=== PATIENT | male | born 1985 | race Caucasian/White ===

== ENCOUNTER 2016-06-26 15:51 | Emergency (ER) | payer MEDICAID, OTHER ==
[2016-06-26 15:59] VITALS: RESP 16
[2016-06-26] MEDS ORDERED: NS 1,000 ML IV ONE (17:09)
--- NOTE | 2016-06-26 17:27 | EDPHY ---
H & P Stated Complaint: anterior neck pain, dysphagia--cough--no new trauma Source: Patient Exam Limitations: No limitations - Personal History Current Tetanus/Diphtheria Vaccine: Unsure Current Tetanus Diphtheria and Acellular Pertussis (TDAP): Unsure - Medical/Surgical History Hx Asthma: No Hx Chronic Respiratory Disease: No Hx Diabetes: No Hx Cardiac Disease: No Hx Renal Disease: No Hx Cirrhosis: No Hx Alcoholism: No Hx HIV/AIDS: No Hx Splenectomy or Spleen Trauma: No Other PMH: prior c4 injury 2012 - Social History Smoking Status: Light smoker HPI/ROS: CHIEF COMPLAINT: Anterior neck pain HISTORY OF PRESENT ILLNESS: patient notes the sudden onset of bilateral anterior neck pain yesterday. It is difficult for him to qualify or quantify the pain. He noted some spasms with. It is from the midline of the neck back to about 90. Moderate to severe pain severe enough that he felt he needed to come to the emergency department. He has some difficulty when he swallows but no internal /esophageal pain. No soreness of the throat. No difficulty breathing. He has a chronic neck pain that he has dealt with for years, is uncertain if this is related. He has no motor or sensory complaints of the upper extremities. No weakness of the lower extremities or saddle anesthesia. He has no fever or chills. He does admits using a bong yesterday, but his complaints started prior to this. He also had a sudden onset of chest pain yesterday that almost nearly immediately resolved. No shortness of breath. No other associated complaints or modifying factors. REVIEW OF SYSTEMS: Ten systems reviewed and are negative unless otherwise noted in the HPI EXAMINATION General Appearance: Alert, no distress Head: normocephalic, atraumatic Eyes: Pupils equal and round, no conjunctival pallor or injection . EOMs intact. ENT, Mouth: Mucous membranes moist . Uvula midline. No erythema, edema or lesions. Neck: Normal appearance. Supple. No midline tenderness of the posterior neck. There is subcutaneous emphysema on the bilateral anterior neck margins from the ramus of the mandible down to the clavicles. Respiratory: Lungs are clear to auscultation . No wheezing, rhonchi, crackle or diminishment. No distress. Cardiovascular: Regular rate and rhythm . No murmur. Pulses intact distally. Gastrointestinal: Abdomen is soft and nontender Back: non-tender, no bony abnormalities Neurological: A&O, nonfocal, normal gait . Strength is symmetric in all 4 limbs. Sensory is intact in all 4 limbs. Skin: Warm and dry, no rash Extremities: Nontender, no pedal edema Psychiatric: Mood and affect normal DIFFERENTIAL DIAGNOSES: Including but not limited to Subcutaneous emphysema, mediastinal injury, pneumomediastinum, pneumothorax, esophageal injury, tracheal injury MDM: 5:15 p.m. anterior neck pain with palpable subcutaneous emphysema. His vital signs are within normal limits. Lungs are clear in all prado. Was did immediately ordered a CT scan of the neck soft tissue and Chest to further delineate. Creatinine has been verified as normal. CT has been notified. He is resting comfortably in no acute distress. 6:30 p.m. radiology notified me of the CT scan findings that are significant, with profound pneumomediastinum that does track into the epidural space. I immediately consult to neurosurgery. I discussed the case with Dr. Carney. He reviewed the CT scan and feels that there is no neurosurgical emergency or need for treatment from this. I have discussed this with the patient he is resting comfortably in no acute distress. He informed me that he does not feel that the Bong is the cause of this as he had symptoms before that. He still has pain in the neck but has no distress, no difficulty breathing. He does still have odynophagia but no dysphagia. I discussed the case with Dr. Sebastian and he will evaluate the patient to assist with disposition. He will also assume care of the patient at this time. Please see his note for final disposition. SUPERVISION: Patient was evaluated in conjunction with the supervising physician. Please see their note for details. (Cesar Ochoa) Constitutional: Initial Vital Signs Temperature (C) 97.7 F 06/26/16 15:55 Heart Rate 87 06/26/16 15:55 Respiratory Rate 16 06/26/16 15:55 Blood Pressure 95/69 L 06/26/16 15:55 O2 Sat (%) 96 06/26/16 15:55 O2 Delivery Mode Room Air Allergies/Adverse Reactions: Sulfa (Sulfonamide Antibiotics) Allergy (Verified 06/26/16 15:54) Home Medications: Medication Instructions Recorded Concerta 06/26/16 Hydrocodone/APAP 5/325 [Dedham 1 - 2 each PO Q6 PRN #20 tab 06/26/16 5/325] Medical Decision Making Other Provider: I evaluated and participated in the management of the patient. I also evaluated the patient independently. My co-signature indicates that I have reviewed this chart and I agree with the findings and plan of care as documented. My personal H&P findings include: The patient presents to the ED with complaints of neck pain in subcutaneous emphysema. His symptoms developed yesterday. There is no obvious precipitant the development of the symptoms aside from the possibility of some excessive stretching in his neck. The patient does report that he is a chronic daily marijuana user but denies excessive coughing or Valsalva maneuver. The patient does report some mild a done aphasia but denies dysphagia. The patient has no prior history of connective tissue disorder. He has no complaints of fever. The patient denies additional complaints. PHYSICAL General Appearance: Alert, no distress Eyes: Pupils equal and round no pallor or injection ENT, Mouth: Mucous membranes moist Respiratory: Lungs clear to auscultation bilaterally, subcutaneous emphysema noted extensively throughout the patient's neck and anterior chest wall Cardiovascular: Regular rate and rhythm Gastrointestinal: Abdomen is soft and nontender, no masses, bowel sounds normal Neurological: A&O, normal motor function, normal sensory exam, normal cranial nerves Skin: Warm and dry, no rashes Musculoskeletal: Neck is supple nontender Extremities: symmetrical, full range of motion CT scan of the neck and chest reviewed which demonstrates extensive pneumomediastinum, subcutaneous emphysema but no evidence of obvious pericardial effusion or pneumothorax. I evaluated the patient personally at 7:30 p.m.. The patient is having moderate pain. Consultation was made with Dr. Didier Romero who recommends esophagram for complete evaluation. Esophagram was completed and found to be within normal limits. The patient was re-evaluated by myself at 8:30 p.m.. He will be discharged home with a prescription for pain medications. The patient understands to return to the ED for fever, markedly worsening symptoms, difficulty breathing or other concerns. (Marlon Sebastian) - Data Points Laboratory Results: Laboratory Results 06/26/16 17:27 06/26/16 17:27 Medications Given: Discontinued Medications Hydrocodone Bitart/Acetaminophen (Dedham 5/325mg Prepack#6) 1 btl TAKEHOME EDNOW ONE Stop: 06/26/16 20:46 Last Admin: 06/26/16 20:45 Dose: 1 btl Sodium Chloride (Ns) 1,000 mls @ 0 mls/hr IV ONCE ONE PRN Reason: Wide Open Stop: 06/26/16 17:10 Last Admin: 06/26/16 17:40 Dose: 1,000 mls Departure - Departure Disposition: Home, Routine, Self-Care Clinical Impression: Neck pain, Subcutaneous emphysema, non-traumatic, Pneumomediastinum Condition: Good Instructions: Neck Pain (ED), Acute Neck Pain (ED) Additional Instructions: 1. Please follow up as scheduled with your primary care provider. 2. Please avoid any marijuana smoking while you are healing from your injury today. 3. Please take ibuprofen as needed for pain. Dedham as needed for severe pain. Referrals: JORGITO YAN [Other] - As per Instructions Prescriptions: Hydrocodone/APAP 5/325 [Dedham 5/325] 1 - 2 each PO Q6 PRN #20 tab PRN Reason: for pain
[2016-06-26 17:38] LABS: % IMMATURE GRANULYOCYTES 0.3 % (0.0-1.1); ABSOLUTE IMMATURE GRANULOCYTES 0.02 10^3/uL (0.00-0.10); ADD DIFF? NO; ADD MORPH? NO; ADD SCAN? NO; ATYPICAL LYMPHOCYTE FLAG 10 (0-99); FRAGMENT RBC FLAG 0 (0-99); HEMATOCRIT 45.5 % (40.0-51.0); HEMOGLOBIN 15.9 g/dL (13.7-17.5); LEFT SHIFT FLG 0 (0-99); LIPEMIA HEMOLYSIS FLAG 90 (0-99); MEAN CELL HEMOGLOBIN 31.5 pg (27.9-34.1); MEAN CELL HEMOGLOBIN CONCENTR. 34.9 g/dL (32.4-36.7); MEAN CELL VOLUME 90.3 fL (81.5-99.8); MEAN PLATELET VOLUME 11.2 fL (8.7-11.7); PLATELET CLUMPS FLAG 0 (0-99); PLATELET COUNT 179 10^3/uL (150-400); RED BLOOD CELL COUNT 5.04 10^6/uL (4.40-6.38); RED CELL DISTRIBUTION WIDTH 13.4 % (11.5-15.2)
[2016-06-26] MEDS ORDERED: IOPAMIDOL (ISOVUE-300) 100 ML BTL IV ONE (17:45)
[2016-06-26 17:51] LABS: ANION GAP 11 mEq/L (8-16); CALCIUM 9.8 mg/dL (8.5-10.4); CARBON DIOXIDE 26 mEq/l (22-31); CHLORIDE 103 mEq/L (97-110); CREATININE 0.9 mg/dL (0.7-1.3); GLOMERULAR FILTRATION RATE > 60; GLUCOSE 87 mg/dL (70-100); POTASSIUM 4.1 mEq/L (3.5-5.2); SODIUM 140 mEq/L (134-144)
[2016-06-26 18:01] LABS: CREATINE KINASE-MB FRACTION 0.95 ng/mL (0-3.19)
[2016-06-26] MEDS ORDERED: HYDROCOD/APAP 5/325 PREPACK#6 BTL TAKEHOME ONE ×2 (20:45→20:47)
[2016-06-26 21:09] VITALS: BP 113/78; PULSE 53; TEMP 97.5; O2SAT 98
== END 2016-06-26 21:07 | disposition home or self-care (01) ==
DX: J98.2 Interstitial emphysema (principal); F17.200 Nicotine dependence, unspecified, uncomplicated
CPT/HCPCS: 80305; Q9967

== ENCOUNTER 2017-06-15 14:16 | Emergency (ER) | payer MEDICAID, OTHER ==
[2017-06-15 14:27] VITALS: TEMP 98.1; O2SAT 93
--- NOTE | 2017-06-15 15:16 | EDPHY ---
H & P Stated Complaint: ski injury 5 d ago -landed hard on legs-poss reinjury to cerv spine Time Seen by Provider: 06/15/17 15:15 - Medical/Surgical History Hx Asthma: No Hx Chronic Respiratory Disease: No Hx Diabetes: No Hx Cardiac Disease: No Hx Renal Disease: No Hx Cirrhosis: No Hx Alcoholism: No Hx HIV/AIDS: No Hx Splenectomy or Spleen Trauma: No Other PMH: prior c4 injury 2011 - Social History Smoking Status: Light smoker Constitutional: Initial Vital Signs Temperature (C) 36.7 C 06/15/17 14:22 Heart Rate 99 06/15/17 14:22 Respiratory Rate 16 06/15/17 14:22 Blood Pressure 117/59 L 06/15/17 14:22 O2 Sat (%) 93 06/15/17 14:22 O2 Delivery Mode Room Air Allergies/Adverse Reactions: Sulfa (Sulfonamide Antibiotics) Allergy (Verified 06/26/16 15:54) Home Medications: Medication Instructions Recorded Hydrocodone/APAP 5/325 [Florence 1 - 2 each PO Q4-6PRN PRN #11 tab 06/15/17 5/325] Ibuprofen [Motrin] 800 mg PO Q8 #20 tab 06/15/17 Vyvanse 06/15/17 Medical Decision Making - Diagnostics Imaging Results: Imaging Impressions Cervical Spine X-Ray 06/15/17 15:33 Impression: Reversed upper cervical curvature. Muscle spasm?. Imaging: Discussed imaging studies w/ paleologist Radiologist, I viewed and interpreted images myself ED Course/Re-evaluation: CHIEF COMPLAINT: Neck pain secondary to ski injury HISTORY OF PRESENT ILLNESS: The patient is a 32 y/o male with a history of a C4 injury complaining of neck pain after landing hard while skiing 5 days ago. When he landed he felt like his spine compressed and had shooting pains around his neck that radiated towards his head. Denies seeking medical treatment after skiing. On Thursday, 3 days ago, he started feeling better so he decided to do some pushups. After doing several pushups he had a shooting pain starting in his neck and radiated down towards his pelvis. He is currently having constant neck pain and pelvic pain while sitting. He is able to walk. No chest pain, shortness of breath, sore throat, abdominal pain, urinary or bowel complaints, numbness. REVIEW OF SYSTEMS: A 10 point review of systems was performed and is negative with the exception of the elements mentioned in the history of present illness. PHYSICAL EXAM: HR, BP, O2 Sat, RR. Temp noted General Appearance: Alert, well hydrated, appropriate, and non-toxic appearing. Head: Atraumatic without scalp tenderness or obvious injury Eyes: Pupils equal, round, reactive to light and accommodation, EOMI, no trauma , no injection. Ears: Clear bilaterally, no perforation, normal landmarks Nose: Atraumatic, no rhinorrhea, clear. Throat: Mucus membranes moist. Neck: Supple, nontender, no lymphadenopathy. Respiratory: No retractions, no distress, no wheezes, and no accessory muscle use. Lungs are clear to auscultation bilaterally. Cardiovascular: Regular rate and rhythm, no murmurs, rubs, or gallops. Good capillary refill all extremities. Gastrointestinal: Abdomen is soft, nontender, non-distended, no masses, no rebound, no guarding, no peritoneal signs. Musculoskeletal: Normal active ROM of all extremities, atraumatic. Neurological: Alert, appropriate, and interactive. Non-focal neuro Skin: No rashes, good turgor, no nodules on palpation. Past medical history: C4-5 injury (2011), degenerative disc disease Past surgical history: Denies Family history: Denies Social history: Lives in [place], single, not employed DIAGNOSTICS/PROCEDURES/CRITICAL CARE TIME: Cervical x-ray: No acute osseous injury DIFFERENTIAL DIAGNOSIS: The differential diagnosis for the patient's neck pain included but was not limited to musculoskeletal pain, epidural abscess, herniated disk, spinal fracture, and intra-abdominal causes including urinary system. MEDICAL DECISION MAKING: The patient is a 32 y/o male with a history of a C4 injury presenting with non- reproducible neck pain after landing awkwardly while skiing. He has a non-focal neuro exam and is able to walk without difficulty. At triage he declined a c- collar as it exacerbated the pain. He does not meet criteria for a neck or back MRI as he does not have neurological deficits. He is requesting a cervical x- ray. 1555: Reviewed patient's cervical x-ray; there are not acute findings. Dr. Corado, radiologist, agrees. Reassessed patient and discussed imaging findings. I have referred him to Dr. Stiles, neurosurgeon, for unimproved symptoms. I have also referred him to have outpatient cervical and lumbar MRI's via his PCP. I have prescribed him Florence for severe neck pain. Return precautions provided; patient is comfortable with this plan. Departure - Departure Disposition: Home, Routine, Self-Care Clinical Impression: Neck pain Back pain Qualifiers: Back pain location: low back pain Chronicity: acute Back pain laterality: unspecified Sciatica presence: without sciatica Qualified Code(s): M54.5 - Low back pain Condition: Good Instructions: Acute Low Back Pain (ED), Neck Pain (ED), Acute Neck Pain (ED), Chronic Neck Pain (DC) Additional Instructions: 1. Follow up with your primary care provider in the next week to schedule an outpatient MRI. 2. Follow up with Dr. Stiles, neurosurgeon, if your symptoms do not improve in one week. 3. Return to the emergency department for severe pain, fever, numbness, difficulty walking, change in location or nature of pain or other concerns. 4. Use ibuprofen and Tylenol as directed. 5. Try using a heating pad. 6. Take Florence as prescribed for severe pain. Referrals: KAYLA FRANCO [Primary Care Provider] - As per Instructions Ravinder Stiles MD [Medical Doctor] - As per Instructions Prescriptions: Hydrocodone/APAP 5/325 [Florence 5/325] 1 - 2 each PO Q4-6PRN PRN #11 tab PRN Reason: Pain, Moderate Ibuprofen [Motrin] 800 mg PO Q8 #20 tab Report Scribed for: Rajeev Wells Report Scribed by: Allyson Nicolas Date of Report: 06/15/17 Time of Report: 15:16
[2017-06-15] MEDS ORDERED: IBUPROFEN 600 MG TAB PO ONE ×2 (16:23→16:29)
[2017-06-15 16:35] VITALS: BP 118/72; PULSE 87; RESP 18
== END 2017-06-15 16:43 | disposition home or self-care (01) ==
DX: S19.9XXA Unspecified injury of neck, initial encounter (principal); S39.92XA Unspecified injury of lower back, initial encounter; F17.200 Nicotine dependence, unspecified, uncomplicated; V00.328A Other snow-ski accident, initial encounter; Y99.8 Other external cause status; Y93.23 Activity, snow (alpine) (downhill) skiing, snowboarding, sledding, tobogganing and snow tubing

== ENCOUNTER 2017-07-06 17:42 | Emergency (ER) | payer MEDICAID ==
[2017-07-06 18:02] VITALS: BP 102/72; PULSE 66; RESP 16; TEMP 97.9; O2SAT 98
--- NOTE | 2017-07-06 18:57 | EDPHY ---
H & P Time Seen by Provider: 07/06/17 18:16 HPI/ROS: CHIEF COMPLAINT: Neck pain, back pain HISTORY OF PRESENT ILLNESS: 32-year-old male presents to the emergency department with continued ongoing pain in his neck and his back. The patient states on 06/10/2017 he was skiing when off a jump and landed hard on his legs. He initially had immediate pain in his neck. He states he was feeling better a couple of days later and was trying to do some pushups and then felt pain from his neck all the way down to his lower back. He denies paresthesias in his upper lower extremities. Denies feelings of weakness in his upper extremities. He has seen Dr. Doroteo Hoskins for this as an outpatient and was told to follow up with Neurosurgery. He has a scheduled appointment today with the on-call neurosurgeon however he missed this appointment because he was late. He came to the emergency department because he is having continued ongoing pain and he would like "some direction on what to do next". He denies bowel or bladder incontinence. He had an MRI of his cervical, thoracic, and lumbar spine on 2017 at [facility] [address] at an outpatient imaging facility in [place]. REVIEW OF SYSTEMS: Constitutional: No fever, no chills. Eyes: No double or blurry vision. ENT: No sore throat. Respiratory: No cough, no shortness of breath. Cardiac: No chest pain. Gastrointestinal: No abdominal pain, vomiting or diarrhea. Genitourinary: No dysuria. Musculoskeletal: Neck and back pain. Skin: No rashes. Neurological: No headache. Past Medical/Surgical History: Neck injury 2012 Social History: Single. Recently moved to [place] from [place] Smoking Status: Former smoker Physical Exam: General Appearance: Alert, no distress. Eyes: Pupils equal and round. Extraocular motions are all intact. ENT: Mouth: Mucous membranes moist. Respiratory: No wheezing, rhonchi, or rales, lungs are clear to auscultation. Cardiovascular: Regular rate and rhythm. Gastrointestinal: Abdomen is soft and nontender, no masses, no rebound or guarding, bowel sounds normal. Neurological: Alert and oriented x 3, cranial nerves II through XII grossly intact Skin: Warm and dry, no rashes. Musculoskeletal: Nontender to palpate along the cervical, thoracic or lumbar spine. Neck is supple. He does have some mild pain with range of motion of the cervical spine. Straight leg raise is negative bilaterally. Extremities: Full range of motion and no peripheral edema. Normal and equal strength for the upper and lower extremities bilaterally. His reflexes are symmetrical for the upper lower extremities. His strength is equal. Radial, median, and ulnar nerves are all intact. Psychiatric: Patient is oriented X 3, there is no agitation. Constitutional: Initial Vital Signs Temperature (C) 36.6 C 07/06/17 17:50 Heart Rate 66 07/06/17 17:50 Respiratory Rate 16 07/06/17 17:50 Blood Pressure 102/72 07/06/17 17:50 O2 Sat (%) 98 07/06/17 17:50 O2 Delivery Mode Room Air Allergies/Adverse Reactions: Sulfa (Sulfonamide Antibiotics) Allergy (Verified 07/06/17 17:57) Home Medications: Medication Instructions Recorded Cyclobenzaprine [Flexeril 10 MG 10 mg PO 07/06/17 (*)] methylPREDNISolone [Medrol Dose 1 each PO AD #0 ea 07/06/17 Alex] traMADol [Ultram 50 mg (*)] 50 mg PO 07/06/17 Medical Decision Making ED Course/Re-evaluation: 32-year-old male presents to the emergency department with ongoing neck and back pain. He had outpatient MRI at [facility] which I have reviewed. Cervical spine revealed multilevel degenerative changes of greater severity at the level of C4-5 where there is a right central disc protrusion which contacts and the forms the ventral spinal cord contributing to mild to moderate spinal stenosis. There is also mild degenerative changes noted in the thoracic spine on MRI. I spoke with the on-call neurosurgeon, Dr. Stiles, who agreed with Medrol Dosepak and he would see him in follow-up. The patient unfortunately missed his scheduled appointment with him earlier today. I do not think additional imaging studies are indicated in the emergency department. Patient has a normal neurologic examination. Differential Diagnosis: Back pain including but not limited to muscular pain, herniated disc, spine fracture, intra-abdominal causes and urinary tract infection. Departure - Departure Disposition: Home, Routine, Self-Care Clinical Impression: Neck pain Cervical strain Qualifiers: Encounter type: initial encounter Qualified Code(s): S16.1XXA - Strain of muscle, fascia and tendon at neck level, initial encounter Back pain Qualifiers: Back pain location: low back pain Chronicity: chronic Back pain laterality: unspecified Sciatica presence: without sciatica Qualified Code(s): M54.5 - Low back pain; G89.29 - Other chronic pain; G89.29 - Other chronic pain Condition: Good Instructions: Cervical Strain (ED), Back Pain (ED) Additional Instructions: Medrol Dosepak as directed. You may continue muscle relaxer at night to help you sleep if needed. Ibuprofen 600 mg every 8 hr as needed for pain. Activity as tolerated. You should not do any kind resistance straining or lifting overhead until you see a neurosurgeon. Keep scheduled appointment with Dr. Stiles next week. Return to the emergency department if you develop numbness or tingling in your fingers, feelings of weakness in her upper extremities, increasing pain, or if you feel worse in any way. Referrals: Ravinder Stiles MD [Medical Doctor] - 5-7 days, call for appt. (Neurosurgeon on- call) Prescriptions: methylPREDNISolone [Medrol Dose Alex] 1 each PO AD #0 ea
== END 2017-07-06 20:16 | disposition home or self-care (01) ==
DX: S16.1XXA Strain of muscle, fascia and tendon at neck level, initial encounter (principal); S39.92XA Unspecified injury of lower back, initial encounter; G89.29 Other chronic pain; Z87.891 Personal history of nicotine dependence; X58.XXXA Exposure to other specified factors, initial encounter; Y99.8 Other external cause status; Y93.23 Activity, snow (alpine) (downhill) skiing, snowboarding, sledding, tobogganing and snow tubing